=== PATIENT | female | born 1995 | race Caucasian/White ===

== ENCOUNTER 2016-07-20 08:24 | Outpatient (CLI) | payer OTHER ==
[~2016-07-20] VITALS: Ht 170.2 cm; Wt 78.0 kg
[2016-07-20] MEDS ORDERED: PRENAT PO (08:40)
[2016-07-20 08:42] VITALS: BP 118/73; PULSE 116; RESP 18
--- NOTE | 2016-07-20 10:24 | QN ---
Documentation Comment OB Triage Pt presented to OB triage with c/o decreased FM overnight and early this AM. Now feeling more movement and feels more reassured after seeing baby active on U /S. Occasional UCs, denies VB or LOF. VS T 98 P initially 116, now 80 BP 118/73 FHT: baseline 120s, mod sujatha, +accels, no decels Herald: irregular contractions SVE: FT/long/posterior PROCEDURE: OB ultrasound for biophysical profile CLINICAL INDICATION: Decreased movement TECHNIQUE: Multiple sonographic images of the pelvis were obtained. Transabdominal views of the gravid uterus are available for review. The images were reviewed on a PACS workstation. COMPARISON: None FINDINGS: breathing movement = 2/2 tone = 2/2 motion = 2/2 BLAZE = 2/2 BLAZE = 19.4 cm Single live intrauterine with cardiac activity of 144 bpm. position is cephalic. The placenta is anterior. IMPRESSION: 1. Single live intrauterine gestation. 2. Biophysical profile = 11/12. 3. BLAZE = 19.4 cm. A/P 21yo at 39+1 w/decreased FM ->FWB reassuring w/reactive NST and 8/8 BPP ->Labor, ROM and FKC precautions reviewed ->Pt to f/up as scheduled on 07/23 with primary OB, Dr. Waite Questions answered to patient's satisfaction. RAMESH FOSTER MD Jul 20, 2016 10:24
--- NOTE | 2016-07-20 10:25 | RADRPT ---
PROCEDURE: OB ultrasound for biophysical profile CLINICAL INDICATION: Decreased movement TECHNIQUE: Multiple sonographic images of the pelvis were obtained. Transabdominal views of the g ravid uterus are available for review. The images were reviewed on a PACS workstation. COMPARISON: None FINDINGS: breathing movement = 2/2 tone = 2/2 motion = 2/2 BLAZE = 2/2 BLAZE = 19.4 cm Single live intrauterine with cardiac activity of 144 bpm. position is cephal ic. The placenta is anterior. IMPRESSION: 1. Single live intrauterine gestation. 2. Biophysical profile = 8/8. 3. BLAZE = 19.4 cm. RPTAT: HH .Patricia Trejo MD, MD Date Time Electronically viewed and signed by .Patricia Trejo MD, on 07/20/2016 10:25 .G/
--- NOTE | 2016-07-20 10:42 | TRIAGE ---
OB Triage Datetime Report Generated by CPN: 07/20/2016 10:41 Datetime: 07/20/2016 10:09 Labor Evaluation Frequency: OCC Monitor Mode: External Duration (sec)2399: 40-60 Quality: Mild Pattern: Normal: <= 5 Contractions in 10 Minutes Resting Tone [place]: Relaxed Contraction Comments: REMOVED PER DR. FOSTER'S INSTRUCTIONS Heart Rate FHR Baseline Rate: 130 Monitor Mode: External US FHR Baseline Changes: No Baseline Change Variability: Moderate 6-25 bpm Accelerations: 15X15 Decelerations: None Category: Category I Comments: REMOVED PER DR. FOSTER'S INSTRUCTIONS Datetime: 07/20/2016 09:02 Labor Evaluation Frequency: 2-10 Monitor Mode: External Duration (sec)2399: 40-70 Quality: Mild Pattern: Normal: <= 5 Contractions in 10 Minutes Resting Tone [place]: Relaxed Heart Rate FHR Baseline Rate: 115 FHR Baseline Changes: No Baseline Change Variability: Moderate 6-25 bpm Accelerations: 15X15 Decelerations: None Datetime: 07/20/2016 08:52 Vaginal Exam Dilatation (cms): 0.5 Effacement (%): 0 Station: -3 Exam By: CKUNIYOSHI Vaginal Bleeding: None Cervix, Consistency: Moderate Cervix, Position: Posterior Datetime: 07/20/2016 08:33 Time of Arrival: 07/20/2016 08:15 EGA: 39.1 Arrived By: Wheelchair Arrived From: Home Chief Complaint: NO MOVEMENT FROM LAST NIGHT Movement: Absent Contractions: Occasional Rupture of Membranes: Denies Vaginal Bleeding: None Vaginal Discharge: Denies Recent Sexual Intercouse: Denies Abdominal Trauma: Not Applicable (Annotations: Data stored by CPN on behalf of user) Abdominal Trauma: Not Applicable Patient Complaints: Contractions; Other Additional Patient Complaints: FATIGUE x3 WEEKS WITH JOINT PAIN; HX OF ANEMIA; HX OF CERVICAL TEAR WITH PREVIOUS . Time Provider Notified: 07/20/2016 09:19 Provider Notified: DR. MARCOS Initial Plan: EFM x2, SVE Datetime: 07/20/2016 08:26 Stage of : OB Triage Assessment Type: Triage Maternal Assessment Level of Consciousness: Fully Conscious Headache: Denies Blurred Vision: No Respiratory Effort: Unlabored; Regular Rhythm; Equal Expansion Breath Sounds, Left: Clear and Equal Breath Sounds, Right: Clear and Equal Nausea/Vomiting: Denies RUQ Epigastric Pain: Denies Lower Extremities Edema: None Degree: None Upper Extremities Edema: None Degree: None Facial Edema: None Temperature Route: Oral Fall Risk Assessment History of Falling: (0) No Secondary Diagnosis: (0) No Ambulatory Aid: (0) Bedrest/Nurse Assist IV Therapy: (0) No Gait: (0) Normal/Bedrest/Immobile Mental Status: (0) Oriented to Own Ability Fall Score: 0 Fall Risk Score Definition: No Risk: No action required Pain Assessment Pain Scale: 0 Pain Presence: None/Denies Pain Type: N/A
== END 2016-07-20 10:50 | disposition home or self-care (01) ==
LOC: OBT 08:24 → L-D 08:25 → OBT 10:50
PROVIDERS: ATTEND Obstetrics & Gynecology
DX: O36.8130 Decreased fetal movements, third trimester, not applicable or unspecified (principal); Z3A.39 39 weeks gestation of pregnancy
CPT/HCPCS: 76818; Z7500; G0463

== ENCOUNTER 2016-07-29 05:00 | Inpatient (IN) | payer OTHER ==
[~2016-07-29] VITALS: Ht 170.2 cm; Wt 80.0 kg
[~2016-07-29 05:00] MED LIST: PRENAT PO
[2016-07-29 05:39] VITALS: Ht 170.2 cm; Wt 80.0 kg
[2016-07-29] MEDS ORDERED: METHYLERGONOVINE 0.2 MG INJ IM PRN ×2 (06:00→21:00)
[2016-07-29] MEDS ORDERED: CARBOPROST 250 MCG INJ IM PRN ×2 (06:00→21:00)
[2016-07-29] MEDS ORDERED: LIDOCAINE 1% (MPF) 30 ML INJ INJ PRN (06:00)
[2016-07-29] MEDS ORDERED: OXYTOCIN 30 UNITS/LR 500 ML IV PRN ×2 (06:00→21:00)
[2016-07-29] MEDS ORDERED: OXYTOCIN 30 UNITS/LR 500 ML IV SCH ×2 (06:00)
[2016-07-29] MEDS ORDERED: IBUPROFEN 600 MG TAB PO PRN (06:00)
[2016-07-29] MEDS ORDERED: MISOPROSTOL 200 MCG TAB PR PRN ×2 (06:00→21:00)
[2016-07-29] MEDS ORDERED: BUTORPHANOL 2 MG INJ IV PRN (06:00)
[2016-07-29] MEDS: LACTATED RINGER'S 1,000 ML IV SCH ×3 (06:12→20:07)
[2016-07-29 06:33] LABS: ADD SCAN DIFF NO
[2016-07-29 06:37] LABS: BASOPHILS % 0.3 % (0.0-2.0); EOSINOPHILS # 0.2 10^3/ul (0.0-0.5); EOSINOPHILS % 1.7 % (0.0-7.0); HEMATOCRIT 33.6 % (37.0-47.0); HEMOGLOBIN 10.6 g/dl (12.0-16.0); LYMPHOCYTES # 2.3 10^3/ul (0.8-2.9); LYMPHOCYTES % 23.6 % (15.0-51.0); MEAN CORPUSCULAR HGB CONC 31.5 g/dl (32.0-37.0); MEAN CORPUSCULAR VOLUME 85.5 fl (82.0-101.0); MEAN PLATELET VOLUME 11.8 fl (7.4-10.4); MONOCYTE # 0.9 10^3/ul (0.3-0.9); NEUTROPHIL # 6.3 10^3/ul (1.6-7.5); NEUTROPHILS % 64.9 % (39.0-77.0); PLATELET COUNT 197 10^3/UL (140-415); RED BLOOD COUNT 3.93 10^6/ul (4.20-5.40); WHITE BLOOD COUNT 9.8 10^3/ul (4.8-10.8)
[2016-07-29 07:00] LABS: INR 0.92; PARTIAL THROMBOPLASTIN TIME 26.7 Sec (25.0-35.0); PROTIME 12.4 Sec (12.2-14.2)
[2016-07-29] MEDS ORDERED: DINOPROSTONE 10 MG VAG SUPP VAG ONE (08:30)
[2016-07-29] MEDS ORDERED: LACTATED RINGER'S 1,000 ML IV PRN (12:00)
[2016-07-29] MEDS ORDERED: FENTAnyl 2MCG/ML-ROPIV 0.2% 100 ML ONE (15:08)
[2016-07-29] MEDS ORDERED: TERBUTALINE 1 ML ONE (19:46)
[2016-07-29] MEDS ORDERED: TERBUTALINE 1 MG/ML INJ SC ONE (20:00)
[2016-07-29] MEDS ORDERED: FENTAnyl 2MCG/ML-ROPIV 0.2% 100 ML BAG EPI SCH (20:30)
[2016-07-29] MEDS ORDERED: NALOXONE (0.4 MG/ML) INJ IV PRN (20:30)
[2016-07-29] MEDS ORDERED: DIPHENHYDRAMINE 25 MG CAP PO PRN (21:00)
[2016-07-29] MEDS ORDERED: BENZOCAINE 20% 56 ML SPRAY TOP PRN (21:00)
[2016-07-29] MEDS ORDERED: ACETAMINOPHEN/CODEINE #3 TAB PO PRN ×2 (21:00)
[2016-07-29] MEDS ORDERED: ONDANSETRON 4 MG INJ IV PRN (21:00)
[2016-07-29] MEDS ORDERED: ACETAMINOPHEN 325 MG TAB PO PRN ×2 (21:00)
[2016-07-29] MEDS ORDERED: DIBUCAINE 1% 30 GM OINT PR PRN (21:00)
[2016-07-29] MEDS ORDERED: LANOLIN 7 GM TUBE TOP PRN (21:00)
--- NOTE | 2016-07-29 21:08 | HP ---
Date/Time of Note Date/Time of Note DATE: 07/29/16 TIME: 21:05 OB - History Hx of Present Estimated Due Date: Jul 26, 2016 : 2 Para: 1 Care: Good Care Ultrasounds: Normal mid trimester US Obstetrical Complications: None Medical Complications: None Past Family/Social History * Past Medical, Surgical, Family and Obstetric Histories reviewed from chart. Rubella: immune RPR/VDRL: Negative GBS Status: Negative HBsAG: Negative OB Admission Exam Physical Exam HEENT: WNL Heart: Rhythm Normal Lungs: Clear, Equal Abdomen: WNL Extremities: Normal Reflexes: Normal Effacement: 50% Station: -2 Membranes: Intact Accelerations: Accelerations Present Varibility: Marked Contractions on Admission: >10 Minutes Apart Intensity: Mild Last 72 hours Lab Results CBC & BMP 07/29/16 06:00 OB Assessment/Plan Reason for admission: induction of labor Other Assessment: history of fast labor Plan: Induction Other plan: delivery ABBEY MARCOS MD Jul 29, 2016 21:08
--- NOTE | 2016-07-29 21:12 | LDN ---
Date/Time of Note Date/Time of Note DATE: 07/29/16 TIME: 21:08 Delivery Summary induction of labor due to fast labor history spontaneous delivery Weeks of Gestation 40.3 weeks history of fast labors Placenta Delivered: Spontaneously Meconium: none Episiotomy: No Perineal laceration: 1 (first degree perineaL) Anesthesia type: Epidural Estimated blood loss: 400 Sponge & Needle done & correct: Yes All needle counts correct: Yes Problems: Infant Delivery Information Sex Sex: male Apgars 1 Minute: 9 5 Minute: 9 Suctioning Nose & mouth suctioned at henri: Yes Delee suction performed: No Umbilical Cord Umbilical cord with: 3 Vessels Cord presentations: nuchal cord Cord Blood was obtained: Yes ABBEY MARCOS MD Jul 29, 2016 21:12
[2016-07-29] MEDS: OXYTOCIN 30 UNITS/LR 500 ML IV SCH (21:21)
[2016-07-29 22:45] VITALS: BP 135/71; RESP 20
[2016-07-29] MEDS: SENNA/DOCUSATE NA (8.6MG/50MG) TAB PO SCH (23:35)
[2016-07-29] MEDS: IBUPROFEN 800 MG TAB PO SCH (23:35)
[2016-07-30] MEDS: OXYTOCIN 30 UNITS/LR 500 ML IV SCH (01:22)
[2016-07-30 03:45] VITALS: BP 118/62; RESP 20
[2016-07-30] MEDS: IBUPROFEN 800 MG TAB PO SCH ×4 (05:18→23:51)
[2016-07-30 07:50] VITALS: BP 115/68; RESP 18
[2016-07-30 08:29] LABS: ADD SCAN DIFF NO
[2016-07-30 08:38] LABS: BASOPHILS % 0.1 % (0.0-2.0); EOSINOPHILS % 0.3 % (0.0-7.0); HEMATOCRIT 31.7 % (37.0-47.0); HEMOGLOBIN 10.4 g/dl (12.0-16.0); LYMPHOCYTES # 1.5 10^3/ul (0.8-2.9); LYMPHOCYTES % 10.7 % (15.0-51.0); MEAN CORPUSCULAR HEMOGLOBIN 27.8 pg (29.0-33.0); MEAN CORPUSCULAR HGB CONC 32.8 g/dl (32.0-37.0); MEAN CORPUSCULAR VOLUME 84.8 fl (82.0-101.0); MONOCYTE # 1.1 10^3/ul (0.3-0.9); MONOCYTES % 7.8 % (0.0-11.0); NEUTROPHIL # 11.1 10^3/ul (1.6-7.5); NEUTROPHILS % 80.6 % (39.0-77.0); PLATELET COUNT 160 10^3/UL (140-415); RED BLOOD COUNT 3.74 10^6/ul (4.20-5.40); RED CELL DISTRIBUTION WIDTH 12.8 % (11.5-14.5); WHITE BLOOD COUNT 13.8 10^3/ul (4.8-10.8)
[2016-07-30] MEDS: SENNA/DOCUSATE NA (8.6MG/50MG) TAB PO SCH ×2 (09:12→21:00)
--- NOTE | 2016-07-30 12:47 | PN ---
Date/Time of Note Date/Time of Note DATE: 07/30/16 TIME: 12:46 OB Subjective Subjective Subjective doing well afebrile, ambulatory uterus contracted and lochia normal. no complaints breast feeding OB Objective HEENT: WNL Heart: Rhythm Normal Lungs: Clear, Equal Abdomen: WNL Extremities: Normal Reflexes: Normal ABBEY MARCOS MD Jul 30, 2016 12:47
[2016-07-30 13:00] VITALS: BP 112/60
[2016-07-30 16:30] VITALS: BP 109/57; RESP 18
[2016-07-30 20:05] VITALS: BP 121/70; RESP 18
[2016-07-31 03:50] VITALS: BP 118/63; RESP 20
[2016-07-31] MEDS: IBUPROFEN 800 MG TAB PO SCH ×2 (05:27→11:43)
[2016-07-31 08:04] LABS: ADD SCAN DIFF NO
[2016-07-31 08:07] LABS: BASOPHILS % 0.5 % (0.0-2.0); EOSINOPHILS # 0.2 10^3/ul (0.0-0.5); EOSINOPHILS % 2.8 % (0.0-7.0); HEMATOCRIT 30.2 % (37.0-47.0); HEMOGLOBIN 9.5 g/dl (12.0-16.0); LYMPHOCYTES # 1.6 10^3/ul (0.8-2.9); LYMPHOCYTES % 19.2 % (15.0-51.0); MEAN CORPUSCULAR HEMOGLOBIN 27.2 pg (29.0-33.0); MEAN CORPUSCULAR HGB CONC 31.5 g/dl (32.0-37.0); MEAN CORPUSCULAR VOLUME 86.5 fl (82.0-101.0); MEAN PLATELET VOLUME 11.6 fl (7.4-10.4); MONOCYTE # 0.9 10^3/ul (0.3-0.9); MONOCYTES % 10.1 % (0.0-11.0); NEUTROPHIL # 5.7 10^3/ul (1.6-7.5); NEUTROPHILS % 66.9 % (39.0-77.0); PLATELET COUNT 156 10^3/UL (140-415); RED BLOOD COUNT 3.49 10^6/ul (4.20-5.40); RED CELL DISTRIBUTION WIDTH 13.4 % (11.5-14.5); WHITE BLOOD COUNT 8.5 10^3/ul (4.8-10.8)
[2016-07-31 08:59] VITALS: BP 102/61; PULSE 66; RESP 17
[2016-07-31] MEDS ORDERED: DIPHTH/TET/ACEL PERTUSS (ADULT) 0.5 ML VIAL IM* ONE (09:00)
[2016-07-31] MEDS ORDERED: VARICELLA VACCINE LIVE/PF 1,350 UNIT/0.5 ML ML SC* ONE (09:00)
[2016-07-31] MEDS ORDERED: MEASLES,MUMPS,RUBELLA VACCINE INJ SC* ONE (09:00)
[2016-07-31] MEDS: SENNA/DOCUSATE NA (8.6MG/50MG) TAB PO SCH (09:19)
[2016-07-31] MEDS ORDERED: LIDOCAINE 1% (MPF) 30 ML INJ INJ PRN (12:00)
--- NOTE | 2016-07-31 12:47 | PD.PPDC ---
H[employer]IP [employer]ATER Discharge Instruction Condition Patient Condition: Good Diet Diet: Resume Regular Diet Activity/Restrictions Activity: Normal Activity May Shower Restrictions: No Exercising No Lifting No Driving No Sexual Activity Nothing in the Vagina No [place] No Tampons, douche Follow-up Follow-up with Physician: 6, Week/Weeks Return to clinic for [employer] Instructions: Fever greater than 101 [place] Worsening abdominal pain Excessive Vaginal Bleeding More than 2 pads per hour Unable to tolerate diet OB Instructions: Breast Tenderness Depression Blurried Vision Headache Surgical Instructions: Incisional Drainage Incisional Redness ABBEY MARCOS MD Jul 31, 2016 12:47
--- NOTE | 2016-07-31 12:50 | DS ---
Date/Time of Note Date/Time of Note DATE: 07/31/16 TIME: 12:48 Discharge Summary Admission/Discharge Info Admit Date/Time Jul 29, 2016 at 05:05 Discharge Date/Time 07/31/16 Final Diagnosis spontaneous vaginal delivery Patient Condition: Good Hx of Present Illness uneventful Hospital Course as expected Home Meds Reported Medications Multivit/Min/Fol Ac/Iron/Pren* ( S*) 1 Tab Tab, 1 TAB PO DAILY, TAB 07/20/16 Pending Labs Laboratory Tests Test 07/31/16 07:35 White Blood Count 8.510^3/ul (4.8-10.8) Red Blood Count 3.4910^6/ul (4.20-5.40) Hemoglobin 9.5g/dl (12.0-16.0) Hematocrit 30.2% (37.0-47.0) Mean Corpuscular Volume 86.5fl (82.0-101.0) Mean Corpuscular Hemoglobin 27.2pg (29.0-33.0) Mean Corpuscular Hemoglobin Concent 31.5g/dl (32.0-37.0) Red Cell Distribution Width 13.4% (11.5-14.5) Platelet Count 80162^3/UL (140-415) Mean Platelet Volume 11.6fl (7.4-10.4) Neutrophils % 66.9% (39.0-77.0) Lymphocytes % 19.2% (15.0-51.0) Monocytes % 10.1% (0.0-11.0) Eosinophils % 2.8% (0.0-7.0) Basophils % 0.5% (0.0-2.0) Nucleated Red Blood Cells % 0.0/100WBC (0.0-0.0) Neutrophils # 5.710^3/ul (1.6-7.5) Lymphocytes # 1.610^3/ul (0.8-2.9) Monocytes # 0.910^3/ul (0.3-0.9) Eosinophils # 0.210^3/ul (0.0-0.5) Basophils # 0.010^3/ul (0.0-0.1) Nucleated Red Blood Cells # 0.010^3/ul (0.0-0.0) ABBEY MARCOS MD Jul 31, 2016 12:50
== END 2016-07-31 15:59 | disposition home or self-care (01) | DRG 775 ==
LOC: L-D 05:05 → PP1 22:38
PROVIDERS: ADMIT Obstetrics & Gynecology; ATTEND Obstetrics & Gynecology
PROC: 0HQ9XZZ Repair Perineum Skin, External Approach (ICD-10-PCS; 2016-07-29)
PROC: 10E0XZZ Delivery of Products of Conception, External Approach (ICD-10-PCS; principal; 2016-07-29 05:00)
DX: O70.0 First degree perineal laceration during delivery (principal); O48.0 Post-term pregnancy; Z3A.40 40 weeks gestation of pregnancy; Z37.0 Single live birth
CPT/HCPCS: 62319; 85025; 85610; 85730; 86592; 86900; 86901; 87340; 90715; 90716; J2210; J2590; J3010; J3105; J7120